=== PATIENT | male | born 1970 | race Caucasian/White ===

== ENCOUNTER → 2020-08-01 | Outpatient (CLI) | payer OTHER ==
--- NOTE | 2020-08-01 11:44 | US ---
EXAMINATION TYPE: US gallbladder DATE OF EXAM: 08/01/2020 COMPARISON: NONE CLINICAL HISTORY: R19.4 change of bowel habits. Patient states getting sick x 15 years ago and has thomas d change in bowel habits. No recent flair ups. EXAM MEASUREMENTS: Liver Length: 11.5 cm Gallbladder Wall: 0.1 cm CBD: 0.3 cm Right Kidney: 8.8 x 4.5 x 4.3 cm Pancreas: Tail obscured by overlying bowel gas Liver: wnl Gallbladder: wnl Evidence for sonographic Thompson's sign: neg CBD: wnl Right Kidney: No hydronephrosis or masses seen IMPRESSION: No acute findings are evident.
== END ==
LOC: EDBD 07-28 07:00 → RADUSWWP 10:45
PROVIDERS: ATTEND Family Medicine
DX: R19.4 Change in bowel habit (principal)
CPT/HCPCS: 76705